=== PATIENT | male | born 1995 | race Caucasian/White ===

== ENCOUNTER 2018-07-25 16:47 | Emergency (ER) | payer OTHER ==
[2018-07-25 16:53] VITALS: BP 131/92
--- NOTE | 2018-07-25 17:10 | ED Physician Documentation ---
History of Present Illness - Stated complaint Stated Complaint: TATTOO/RED/PUS/PX - Chief complaint Chief Complaint: General - History obtained from History obtained from: Patient - Additonal information Additional information: 22-year-old male presents the emergency department for of his recent tattoo site. The patient's noticed redness and irritation. The patient denies fevers, chills, swelling. Symptoms are described as mild Review of Systems Constitutional: denies: Fever Skin: denies: Laceration (s) Musculoskeletal: denies: Neck pain Neurologic: denies: Generalized weakness Immunocompromised: denies: Chemotherapy PD PAST MEDICAL HISTORY - Present Medications Home Medications: Ambulatory Orders Medication Instructions Recorded Confirmed Mupirocin 22 gm TP TID 10 Days #1 oint...g. 07/25/18 - Allergies Allergies/Adverse Reactions: Allergies Allergy/AdvReac Type Severity Reaction Status Date / Time No Known Drug Allergies Allergy Verified 07/25/18 16:52 PD ED PE NORMAL - General General: Alert and oriented X 3, No acute distress - HEENT HEENT: Atraumatic, PERRL, EOMI - Extremities Extremities: No: No deformity - Neuro Neuro: Alert and oriented X 3, Normal speech PD ED PE EXPANDED - Derm SKin visual: 1 - rash (The patient has a recent tattoo site, there is area of granulation tissue and a small area of surrounding Redness. There is no evidence of abscess. There is no drainage or swelling. The patient has slight tenderness) Results - Vitals Vitals: Vital Signs - 24 hr 07/25/18 16:49 Temperature 36.5 C Heart Rate 80 Respiratory 16 Rate Blood Pressure 131/92 H O2 Saturation 100 Oxygen O2 Source Room air PD MEDICAL DECISION MAKING - ED course ED course: The patient appears to have possibly early cellulitis, the patient appears appropriate for a topical antibiotic ointment. Presently I do not think a s ystemic antibiotic is warranted. I discussed this with the patient will understands and agrees. I discussed warning signs and recommended returning to the emergency department for any worsening or any concerns. Departure - Departure Disposition: Home, Self Care Clinical Impression: Tattoo reaction Condition: Good Instructions: Cellulitis Dc Follow-Up: DEMARCO ESQUIVEL [Primary Care Provider] - Within 1 week Prescriptions: Mupirocin 22 gm TP TID 10 Days #1 oint...g. Comments: Please return to the emergency department for worsening symptoms or any concerns
== END 2018-07-25 17:17 | disposition home or self-care (01) ==
LOC: ED 16:47
DX: T65.891A Toxic effect of other specified substances, accidental (unintentional), initial encounter (principal); L81.8 Other specified disorders of pigmentation
CPT/HCPCS: 99283

== ENCOUNTER 2020-10-28 12:53 | Emergency (ER) | payer OTHER ==
[2020-10-28] MEDS ORDERED: BUFFERED LIDOCAINE 10 ML SYRINGE SUBQ STA (13:15)
[2020-10-28] MEDS ORDERED: BUPIVACAINE 0.25% PF 30 ML VIAL SUBQ STA (13:15)
--- NOTE | 2020-10-28 13:16 | ED Physician Documentation ---
PD HPI UPPER EXT INJURY - Stated complaint Stated Complaint: LT HAND INJ - Chief complaint Chief Complaint: Ext Problem - History obtained from History obtained from: Patient (24-year-old gentleman, otherwise healthy and active duty in the [employer]. He is right-handed. He slammed his left thumb in the car door at home just prior to arrival. States that tetanus is unknown but since he is active duty presume he is up-to-date.) - History of Present Illness Location: Left Review of Systems Eyes: reports: Reviewed and negative Cardiac: reports: Reviewed and negative Respiratory: reports: Reviewed and negative PD PAST MEDICAL HISTORY - Past Medical History Past Medical History: No - Past Surgical History Past Surgical History: No - Present Medications Home Medications: Ambulatory Orders Medication Instructions Recorded Confirmed No Known Home Medications 10/28/20 10/28/20 - Allergies Allergies/Adverse Reactions: Allergies Allergy/AdvReac Type Severity Reaction Status Date / Time whey Allergy Anaphylaxis Verified 10/28/20 13:07 - Social History Does the pt smoke?: No Smoking Status: Never smoker Does the pt drink ETOH?: No Does the pt have substance abuse?: No - Immunizations Immunizations are current?: Yes - POLST Patient has POLST: No PD ED PE NORMAL - Vitals Vital signs reviewed: Yes - General General: Alert and oriented X 3, No acute distress - Extremities Extremities: Other (There is an abrasion/very shallow laceration on the ulnar side of the distal left thumb dorsally at the level of the proximal nailbed. The nail is not loose. There is no subungual hematoma. There is some mild tenderness. Good range of motion.) - Neuro Neuro: Alert and oriented X 3, Normal speech Results - Vitals Vitals: Vital Signs - 24 hr 10/28/20 10/28/20 13:04 14:25 Temperature 36.3 C L Heart Rate 74 74 Respiratory 16 16 Rate Blood Pressure 149/82 H 115/78 O2 Saturation 100 100 Oxygen O2 Source Room air Procedures - Laceration (location) L thumb Length in cm: 1 Wound type: Linear, Superficial Wound preparation: Irrigated copiously NS Skin layer closure: Dermabond (The wound was quite shallow but required some Dermabond mostly to keep it from bleeding.) Other: Tetanus UTD - Regional nerve block Nerve block site: Digital - note digit(s) (Left thumb) Right / left: Left Nerve block anesthesia: Lidocaine 1%, Marcaine 0.25% Nerve block aftercare: Excellent anesthesia PD MEDICAL DECISION MAKING - ED course ED course: Digital anesthesia was done with excellent results, the hand then was cleansed with Hibiclens and scrubbed. Nothing that needs specific repair. Departure - Departure Disposition: 01 Home, Self Care Clinical Impression: Crushing injury of left thumb Qualifiers: Encounter type: initial encounter Qualified Code(s): S67.02XA - Crushing injury of left thumb, initial encounter Condition: Good Record reviewed to determine appropriate education?: Yes Instructions: ED Crush Injury Finger No Fx Comments: Can replace the dressing daily, just keep it covered with a Band-Aid and some [id number] antibiotic ointment. Ibuprofen as needed for pain. Return for new or worsening symptoms. [place]: Activity restrictions Discharge Date/Time: 10/28/20 14:34
--- NOTE | 2020-10-28 13:51 | XRAY Report ---
PROCEDURE: Finger(s) LT INDICATIONS: L thumb inj TECHNIQUE: PA view of the hand and 2 views of the thumb acquired. COMPARISON: None. FINDINGS: Bones: No acute fractures or dislocations. No suspicious bony lesions. Soft tissues: No suspicious soft tissue calcifications. No radiopaque foreign body. IMPRESSION: No acute osseous abnormality. If symptoms persist with conservative management, further evaluation wi th CT or MRI may be obtained. Reviewed by: Chong Pastor MD on 10/28/2020 1:50 PM [facility] Approved by: Chong Pastor MD on 10/28/2020 1:50 PM [facility] Station ID: [id number]
[2020-10-28 14:33] VITALS: BP 115/78
== END 2020-10-28 14:34 | disposition home or self-care (01) ==
LOC: ED 12:53
DX: S67.02XA Crushing injury of left thumb, initial encounter (principal); W23.0XXA Caught, crushed, jammed, or pinched between moving objects, initial encounter; Y92.009 Unspecified place in unspecified non-institutional (private) residence as the place of occurrence of the external cause
CPT/HCPCS: 12001; 99282; 99283